=== PATIENT | male | born 1970 | race Caucasian/White ===

== ENCOUNTER 2022-08-12 12:41 | Emergency (ER) | payer BC, SELFPAY ==
[2022-08-12] VITALS (16 sets, daily range): BP systolic 120–153; BP diastolic 84–98; PULSE 50–69; RESP 12–24; TEMP 36.2; O2SAT 98–100
--- NOTE | ~2022-08-12 | XR_ITS ---
EXAMINATION: XR chest 2V DATE: 08/12/2022 13:33 INDICATION: Left-sided sharp chest pain TECHNIQUE: PA and lateral views of the chest were obtained. COMPARISON: None FINDINGS: Small calcified nodule at the right costophrenic angle consistent with old granulomatous disease. No other airspace opacities, pulmonary edema, pleural effusion or pneumothorax. The cardiomediastinal si lhouette is normal. Mild thoracic spondylosis. IMPRESSION: 1. No acute cardiopulmonary disease. Reviewed, dictated and finalized at location A. TRY BREEDER
--- NOTE | 2022-08-12 12:42 | ECG_ITS ---
Measurements Intervals [place] Rate: 55 P: 8 DE: 153 QRS: 51 QRSD: 100 T: 29 QT: 389 QTc: 372 Interpretive Statements SINUS BRADYCARDIA INCOMPLETE RIGHT BUNDLE BRANCH BLOCK DELAYED PRECORDIAL R/S TRANSITION BORDERLINE ECG NO PREVIOUS ECG AVAILABLE FOR COMPARISON Electronically Signed On 08-12-2022 13:12:57 GLASS GLAZIER by Kane Lynn D.O.
[2022-08-12 13:06] LABS: Basophils Absolute Auto 0.1 K/mm3 (0.0-0.1); Basophils Percent Auto 1.2 % (0.2-1.2); Eosinophils Absolute Auto 0.2 K/mm3 (0-0.3); Hematocrit 45.2 % (42.0-52.0); Hemoglobin 14.9 g/dL (14.0-18.0); Immature Granulocyte Absolute 0.01 K/mm3 (0.00-0.031); Immature Granulocyte Percent A 0.2 % (0-0.5); Lymphocytes Absolute Auto 1.96 K/mm3 (0.9-3.2); Lymphocytes Percent Auto 34.5 % (18.3-44.2); Mean Corpuscular Hemoglobin 28.1 pg (26-34); Mean Corpuscular Volume 85.3 fl (80-100); Mean Platelet Volume 11.1 fl (7.4-10.4); Monocytes Absolute Auto 0.5 K/mm3 (0.1-0.6); Monocytes Percent Auto 9.3 % (2.6-8.5); Neutrophils Absolute Auto 2.9 K/mm3 (1.3-6.7); Neutrophils Percent Auto 50.8 % (45.5-73.1); Platelet Count Result 220 k/mm3 (150-375); Red Cell Distribution Width 13.2 % (11.5-14.5); White Blood Count 5.7 K/mm3 (4.5-10.0)
[2022-08-12 13:14] LABS: Alanine Aminotransferase 21 U/L (6-50); Albumin Level 4.9 g/dL (3.5-5.1); Alkaline Phosphatase 64 U/L (38-126); Anion Gap 6 mmol/L (8-16); Aspartate Amino Transferase 22 U/L (17-59); Bilirubin,Total 0.6 mg/dL (0.2-1.3); Blood Urea Nitrogen 14 mg/dL (9-20); Calcium 9.2 mg/dL (8.4-10.2); Carbon Dioxide 29 mmol/L (22-30); Chloride 100 mmol/L (98-107); Estimated CRCL calculation 83 ml/min; Estimated Glomerular Filt Rate > 60; Glucose 104 mg/dL (65-110); Lipase 49 U/L (23-300); Potassium 4.4 mmol/L (3.4-5.0); Prothrombin Time 12.4 Seconds (11.1-14.7); Sodium 135 mmol/L (137-145)
[2022-08-12 13:15] LABS: Partial Thromboplastin Time 24.6 SECONDS (22.3-36.8)
[2022-08-12 13:25] LABS: Troponin I < 0.012 ng/mL (0.000-0.034)
[2022-08-12 16:06] LABS: Troponin I < 0.012 ng/mL (0.000-0.034)
--- NOTE | 2022-08-12 16:23 | ED.CHESTPAIN ---
HPI - Chest Pain General Chief Complaint: Chest Pain Stated Complaint: chest pain and left arm pain since 0300 Time Seen by Provider: 08/12/22 14:55 Source: patient Mode of arrival: ambulatory Limitations: no limitations History of Present Illness HPI narrative: 51-year-old male with no significant past medical history who presents with intermittent chest pain that began 6 months ago. He describes the chest pain as sharp and radiating to his left arm, and worse with inspiration. He states it is tender to touch, but does not remember injuring it or any trauma. Patient states that he is always stressed with work. Denies shortness of breath, fever, chills, cough, nausea, vomiting, diarrhea, lower extremity swelling. No recent sick contact. Related Data Allergies Allergy/AdvReac Type Severity Reaction Status Date / Time No Known Allergies Allergy Verified 08/12/22 15:15 Review of Systems Review of Systems: All systems reviewed & are unremarkable except as noted in HPI and below Constitutional: Constitutional: Reports no additional constitutional complaints Eyes: Eyes: Reports no additional eye complaints ENT: Reports system reviewed and no additional complaints, except as documented Cardiovascular: Cardiovascular: Reports as per HPI Respiratory: Respiratory: Reports no additional respiratory complaints Gastrointestinal: Gastrointestinal: Reports no additional gastrointestinal complaints Musculoskeletal: Musculoskeletal: Reports no additional musculoskeletal complaints Integumentary/Breasts: Skin/Breast: Reports system reviewed and no additional complaints, except as docu Exam Narrative: GENERAL: Well-appearing, well-nourished, and in no acute distress. HEAD: Normocephalic, atraumatic. EYES: PERRLA and EOMI. NECK: Supple. CHEST: Clear to auscultation. No respiratory distress. HEART: Regular rate and rhythm. No murmur heard. Normal peripheral pulses. ABDOMEN: Soft, nontender EXTREMITIES: Normal range of motion. No edema. SKIN: Warm, dry, no rash. NEURO: No focal deficits. Alert and oriented x3. PSYCH: Normal mood and affect. Course Course Emergency Course: 51-year-old with no major medical issues here with complaints of 6-month history of left-sided chest pain his EKG is normal sinus with no acute findings. Lab work was unremarkable I do not see any evidence of ACS at this time. Recommended him to follow-up with his primary doctor. Vital Signs Vital signs: Vital Signs Temperature 36.2 C L 08/12/22 12:45 Pulse Rate 50 L 08/12/22 12:45 Respiratory Rate 15 08/12/22 12:45 Blood Pressure 153/98 H 08/12/22 12:45 Pulse Oximetry 99 08/12/22 12:45 Oxygen Delivery Room Air 08/12/22 12:45 Temperature 36.2 C L 08/12/22 12:45 Pulse Rate 58 L 08/12/22 14:29 Respiratory Rate 12 08/12/22 13:45 Blood Pressure 120/84 08/12/22 13:16 Pulse Oximetry 99 08/12/22 13:45 Oxygen Delivery Room Air 08/12/22 12:45 MDM - Chest Pain MDM Narrative Medical decision making narrative: 51-year-old with no major medical problems here with 6-month duration of left-sided pain. Not related to any exertion this morning had pain radiating into his arm. His EKG upon arrival shows sinus bradycardia his physical exam is unremarkable low cardiac evaluation. Differential Diagnosis Differential diagnosis: Likely fracture of rib, unstable angina pectoris, atypical chest pain and costochondritis Medical Records Data Attestation: I reviewed the patient's medical records. Lab Data Attestation: I reviewed the patient's lab results. 08/12/22 12:51 08/12/22 12:51 Labs: Lab Results 08/12/22 08/12/22 08/12/22 Range/Units 12:51 12:51 12:51 WBC 5.7 (4.5-10.0) K/mm3 RBC 5.30 (4.6-6.20) M/mm3 Hgb 14.9 (14.0-18.0) g/dL Hct 45.2 (42.0-52.0) % MCV 85.3 (80-100) fl MCH 28.1 (26-34) pg MCHC 33.0 (32-36) g/dl RDW 13.2 (11.5-14.5) % Plt Count
== END 2022-08-12 16:34 | disposition home or self-care (01) ==
PROVIDERS: Emergency Provider Family Medicine; PCP Family Medicine
DX: R07.9 Chest pain, unspecified (principal)
CPT/HCPCS: 36415; 71046; 80053; 83690; 84484; 85025; 85610; 85730; 93005; 99284

== ENCOUNTER 2022-08-25 10:26 | Outpatient (CLI) | payer BC, SELFPAY ==
[2022-08-25 19:47] LABS: Cholesterol 196 mg/dL (0-200); HDL Direct 62 mg/dL; Triglycerides 94 mg/dL (<150)
[2022-08-25 19:57] LABS: LDL Cholesterol Direct 91 mg/dL
[2022-08-25 20:16] LABS: Prostate Specific Antigen 0.6 ng/mL (< OR = 4.0)
== END 2022-08-25 10:27 | disposition home or self-care (01) ==
LOC: ANHGOSHLAB 10:27
PROVIDERS: PCP Family Medicine; Visit Provider Nurse Practitioner Family
DX: F41.9 Anxiety disorder, unspecified (principal); Z12.5 Encounter for screening for malignant neoplasm of prostate; Z13.220 Encounter for screening for lipoid disorders
CPT/HCPCS: 36415; 80061; 84153; 84443; G0103

== ENCOUNTER → 2023-09-07 16:15 | Outpatient (CLI) | payer BC, SELFPAY ==
--- NOTE | ~2023-09-07 | XR_ITS ---
XR lumbar spine min 4V DATE: 09/07/2023 16:27 INDICATION: Mid and low back pain. No injury. TECHNIQUE: AP, lateral, bilateral oblique views, coned lateral lumbosacral view COMPARISON: None FINDINGS: Osteopenia. Mild lumbar levoscoliosis. There is grade 1 anterolisthesis at L5-S1 due to bilateral L5 pars interarticularis defects. Moderate degenerative disc disease is suggested at L5-S1. Sacroiliac joints are intact. IMPRESSION: Bilateral L5 pars interarticularis defects with grade 1 anterolisthesis at L5-S1 Mild levoscoliosis Moderate degenerative disc disease at L5-S1 Osteopenia Reviewed, dictated and finalized at location L. RITY ATTENDANT IMPRESSION: Bilateral L5 pars interarticularis defects with grade 1 anterolisth esis at L5-S1 Mild levoscoliosis Moderate degenerative disc disease at L5-S1 Osteopenia
--- NOTE | ~2023-09-07 | XR_ITS ---
XR thoracic spine 3V DATE: 09/07/2023 16:27 INDICATION: Mid and low back pain. No injury. TECHNIQUE: AP, lateral, swimmer views COMPARISON: None FINDINGS: There is mild dextroscoliosis. There is osteopenia. There is degenerative spurring of the t horacic spine, including prominent bridging osteophyte anteriorly at T10-11, moderate spurring at T11 -12 and mild degenerative spurring otherwise. The thoracic pedicles are intact. No fracture or dislocation or bone destruction. No abnormal paraspi nal soft tissue thickening. IMPRESSION: Degenerative spurring, more prominent in the lower thoracic region Reviewed, dictated and finalized at location L. TARY NAPKIN MACHINE TENDER
== END ==
PROVIDERS: PCP Family Medicine; Visit Provider Family Medicine
DX: M85.88 Other specified disorders of bone density and structure, other site (principal); M51.37 Other intervertebral disc degeneration, lumbosacral region
CPT/HCPCS: 72072; 72110